=== PATIENT | female | born 1970 | race Caucasian/White ===

== ENCOUNTER → 2023-10-23 06:23 | Day surgery (SDC) | payer OTHER, SELFPAY | LOC: GI 06:23 | PROVIDERS: ATTENDING PHYSICIAN Internal Medicine Gastroenterology | DX: K50.819 Crohn's disease of both small and large intestine with unspecified complications (principal); K63.5 Polyp of colon; K57.30 Diverticulosis of large intestine without perforation or abscess without bleeding; K22.70 Barrett's esophagus without dysplasia; K22.89 Other specified disease of esophagus; K44.9 Diaphragmatic hernia without obstruction or gangrene; K57.10 Diverticulosis of small intestine without perforation or abscess without bleeding | CPT/HCPCS: 45380; 43239; 88305 ==

== ENCOUNTER → 2023-11-19 15:56 | Outpatient (REF) | payer OTHER, SELFPAY | LOC: WDC 15:56 | PROVIDERS: ATTENDING PHYSICIAN Obstetrics & Gynecology; FAMILY PHYSICIAN Family Medicine | DX: Z12.31 Encounter for screening mammogram for malignant neoplasm of breast (principal) | CPT/HCPCS: 77063; 77067 ==

== ENCOUNTER → 2023-12-28 13:37 | Outpatient (REF) | payer OTHER, SELFPAY | LOC: PAVMRI 13:37 | PROVIDERS: ATTENDING PHYSICIAN Internal Medicine Gastroenterology; FAMILY PHYSICIAN Family Medicine | DX: K50.00 Crohn's disease of small intestine without complications (principal) | CPT/HCPCS: 72197; 74183; A9575 ==

== ENCOUNTER → 2024-08-20 14:47 | Outpatient (REF) | payer OTHER, SELFPAY | LOC: HWRAD 14:47 | PROVIDERS: ATTENDING PHYSICIAN Family Medicine | DX: Z87.891 Personal history of nicotine dependence (principal) | CPT/HCPCS: 71271 ==

== ENCOUNTER → 2024-11-24 12:53 | Outpatient (REF) | payer OTHER, SELFPAY | LOC: WDC 12:53 | PROVIDERS: ATTENDING PHYSICIAN Family Medicine | DX: Z12.31 Encounter for screening mammogram for malignant neoplasm of breast (principal) | CPT/HCPCS: 77063; 77067 ==

== ENCOUNTER 2025-02-11 16:32 | Inpatient (IN) | payer OTHER, SELFPAY ==
[2025-02-11] VITALS (7 sets, daily range): BP systolic 138–158; BP diastolic 78–93; BMI 27.5; BMI 26.3
[2025-02-11 10:48] LABS: Hematocrit 40.4 % (37.0-47.0); Hemoglobin 13.3 g/dL (12.0-16.0); Mean Corp Hgb Conc. 32.9 g/dL (33.0-37.0); Mean Corpuscular Volume 83.1 fL (81.0-99.0); Nucleated Red Blood Cells % 0 %; Platelet Count 343 10^3/uL (130-400); Red Cell Dist. Width 13.2 % (11.5-14.5)
[2025-02-11 11:07] LABS: ALT (SGPT) 30 U/L (0-35); AST (SGOT) 35 U/L (14-36); Albumin 4.8 g/dl (3.5-5.0); Alkaline Phosphatase 81 U/L (38-126); Blood Urea Nitrogen 16 mg/dl (7-17); Calcium 9.5 mg/dl (8.4-10.2); Carbon Dioxide 26 mmol/L (22-30); Chloride 106 mmol/L (98-107); Glucose 121 mg/dl (70-99); Potassium 4.2 mmol/L (3.5-5.1); Sodium 139 mmol/L (135-145); Total Protein 8.0 g/dl (6.3-8.2); eGFR > 60.00
[2025-02-11 11:24] LABS: INR 0.92; PT 12.8 Sec (11.4-14.6)
[2025-02-11 11:25] LABS: APTT 23.6 Sec (23.4-35.0)
[2025-02-11] MEDS: NSS 1000 IV ×2 (13:10→17:57)
--- NOTE | 2025-02-11 13:47 | ED.GENMED ---
History of Present Illness
General
Chief Complaint: Abdominal Pain
Source: patient
Exam Limitations: none
Time Seen by Provider: 02/11/25 12:08
Nursing documentation reviewed up to this point in time: agreed with
History of Present Illness
History of Present Illness:
see mdm
Past History
Past History
ED Past Medical History: GERD ([place]), Other (Crohns) and Other (SBO)
ED Past Surgical History: Gynecological
Social History
Tobacco: Non-smoker
Personal:
Living: with family
Employment: Employed
Phy Exam
Physical Exam
Physical Exam:
GENERAL: Alert , in no apparent distress
EYE: pupils equal and reactive
NECK: Supple
ENT: o/p clr, mmm.
CARDIAC: Regular rate and rhythm .no edema
LUNGS: Clear breath sounds bilaterally, no acute respiratory distress, no wheezes/rales/rhonchi
ABDOMEN: Soft, mild to mod lower abd tenderness ,no guarding, mild bloating, no r/g, no cvat, normal bowel soundsR
rectal: pink blood in vault
NEUROLOGICAL: Alert and oriented, no focal neuro deficits
SKIN: Warm and dry, skin intact.
MUSCULOSKELETAL: No edema, well perfused. neg jessica's sign
PSYCH: Normal and appropriate interaction.
Course
Orders/Labs/Results
Orders:
Orders
02/11/25 10:41
Type And Crossmatch [Type+Screen] Urgent
Complete Blood Count/With Diff Urgent
Comprehensive Metabolic Panel Urgent
PTT Urgent
Prothrombin Time Urgent
02/11/25 12:30
CT Abd/Pel (IV only)-DH only Urgent
Comment: crohns
Reason For Exam: lower abd pain, rectal bleeding, diarrhea
0.9% Sodium Chloride 1000 ml [Nss] 1,000 ml IV BOLUS
02/11/25 13:02
ABO2 Routine
BBK Wristband Number:
Associate notified that ABO2 has been ordered: [id number]
Date: 02/11/25
Time: 10:56
Biometrics Analyst ID: [id number]
Lactic Acid Urgent
02/11/25 Dinner
Clear Liquid
At Your Request: Full Participation
02/11/25 15:58
Ova & Parasites Giardia/Crypto AG [Giardia/Cryptosporidium Ag] Urgent
GALEN Source: Feces/Stool
Specimen Description:
Date Specimen was Collected: 02/11/25
Time Specimen was Collected: 15:20
STOOL [C difficile Antigen & Toxins] Urgent
GALEN Source: Feces/Stool
Specimen Description:
Date Specimen was Collected: 02/11/25
Time Specimen was Collected: 15:20
Stool Culture Urgent
GALEN Source: Feces/Stool
Specimen Description:
Date Specimen was Collected: 02/11/25
Time Specimen was Collected: 15:20
Yersinia Culture-Stool Urgent
GALEN Source: ST
Specimen Description:
Date Specimen was Collected: 02/11/25
Time Specimen was Collected: 15:20
Comment: Add on by Kimberly Anaya MD
02/11/25 16:09
Admit/Transfer Patient As Directed
Co-Sign Provider:
Level of Care: Inpatient admission
Assign to:: Medical/Surgical
Physician / Group: Hospitalist
Diagnosis: Hematochezia, diarrhea
Reason for Hospitalization: Hematochezia, diarrhea
Expected length of stay greater than two midnights?: Yes
ELOS- Estimated Length of Stay in days: 2
I certify the patient meets the requirements for IP care: Yes
PRN Pain Medication Management As Directed
May give lesser potent ordered pain med per pt: Yes
preference::
Protocol:: Medication orders for pain may be administered in a
manner that supports deferring to patient preference
when the pt is:
- Requesting an ordered lesser potent pain medication.
Least to most potent pain medications are defined
as: acetaminophen < NSAID < tramadol < opioids
(morphine, oxycodone, hydromorphone).
- Requesting a lesser dose of the same medication IF
ORDERED.
- Requesting a less intrusive route of administration
if both routes are prescribed by the provider (PO <
IV).
02/11/25 16:10
Code Status As Directed
Resuscitation Status: Full Code
02/11/25 16:15
Add On - Microbiology Routine
Tests Added?: yersinia to stool
02/11/25 17:40
0.9% Sodium Chloride 1000 ml [Nss] 1,000 ml IV 75 mls/hr
Acetaminophen [Tylenol] 650 mg PO Q4HPRN PRN
02/11/25 17:40
GASTROINTESTINAL CONSULT Routine
Consulting Provider: Scott Black
Was physician already notified: Yes
Reason for consult: Bloody stools
Activity As Directed
Activity Level: Encourage Progressive Amb
Pneumatic Compression Sleeves As Directed
Type: Knee high
Vital Signs As Directed
Frequency: Per unit guidelines
DX Deep Vein Thrombosis Video Routine
02/11/25 18:00
Atorvastatin [Lipitor] 10 mg PO QPM
CefTRIAXone [Rocephin] 1,000 mg IV Q24H
MetroNIDAZOLE 500 MG/100 ML [Flagyl 500 mg] 100 ml IV Q8H
02/11/25 20:00
Pantoprazole [Protonix] 40 mg PO BID
02/11/25 20:15
H&H Q8H
02/11/25 22:00
Citalopram [Celexa] 40 mg PO HS
02/12/25 04:15
H&H Q8H
02/12/25 06:00
Basic Metabolic Panel IN AM
Complete Blood Count/No Diff IN AM
Magnesium IN AM
Vitamin B12 IN AM
Abnormal Lab Results
02/11/25
10:41
WBC 13.5 H 10^3/uL
(4.8-10.8)
MCHC 32.9 L g/dL
(33.0-37.0)
Abs Immat Gran (auto) 0.1 H 10^3/uL
(0-0.05)
Absolute Neuts (auto) 10.2 H 10^3/uL
(1.4-6.5)
Absolute Monos (auto) 0.8 H 10^3/uL
(0.1-0.6)
Neutrophils % 75.5 H %
(42.2-75.2)
Lymphocytes % 17.7 L %
(20.5-51.1)
Glucose 121 H mg/dl
(70-99)
02/11/25 10:41
02/11/25 10:41
Vital Signs
Initial and Last Documented VS:
Initial Vital Signs
Temp Pulse Resp BP Pulse Ox
37.1 C 72 16 138/93 100
02/11/25 10:28 02/11/25 10:28 02/11/25 10:28 02/11/25 10:28 02/11/25 10:28
Last Documented Vital Signs
Temp Pulse Resp BP Pulse Ox
36.9 C 63 18 150/81 97
02/11/25 20:00 02/11/25 20:00 02/11/25 20:00 02/11/25 20:00 02/11/25 20:00
MDM/Problems Addressed
Differential Diagnosis Includes:
see MDM
MDM/Problems Addressed:
Note:
CHIEF COMPLAINT(S)
Abdominal pain and bloody diarrhea.
HISTORY OF PRESENT ILLNESS
The patient is a 54-year-old female with a known history of Crohns disease on humira. She presented with sudden onset abdominal pain yesterday while in the car, accompanied by lightheadedness and nausea. Later, the patient experienced diarrhea with
visible blood in the stool, which persisted overnight. She reported at least six episodes of bloody stools since onset, with the initial bloody stool occurring at home after using a jm-potty. She described the stool consistency as flaky and
mushy. The patient also experienced lightheadedness and sweating during bathroom trips, with dry heaves noted in the middle of the night but no vomiting.
The patient has been on Humira injections every two weeks for Crohns disease maintenance, recently transitioned to Amjevita. She reports that previous Crohns flare-ups involved only abdominal pain and diarrhea without blood. Current symptoms are
concerning due to the presence of blood. She has ongoing cramping and bloating sensations, which do not completely resolve post bowel movements. Nausea was reported during the night but not since the morning. The patient denies fever but mentions
chills. She has had no food intake today out of fear of exacerbating her symptoms.
ADDITIONAL HISTORY OBTAINED FROM SOURCES OTHER THAN THE PATIENT
According to the patients family, she traveled to [place] recently, consuming bottled water exclusively. No other known illness from the travel libertarian.
CHRONIC MEDICAL CONDITIONS SIGNIFICANTLY AFFECTING CARE
Crohns disease.
Hypercholesterolemia.
SOCIAL DETERMINANTS AFFECTING HEALTH
The patient has traveled internationally recently, which could contribute to infectious concerns.
ALLERGIES
The patient reports an adverse reaction to morphine, stating it exacerbates her condition.
PAST MEDICAL HISTORY
Crohns disease.
PAST SURGICAL HISTORY
Hysterectomy due to endometriosis. No previous bowel surgeries, but a past episode suggestive of partial bowel obstruction without surgical intervention.
MEDICATIONS
Amjevita injections every two weeks.
REVIEW OF SYSTEMS
- Gastrointestinal: Abdominal pain, bloody diarrhea, cramping, bloating, nausea, dry heaves.
- Neurological: Lightheadedness.
- Dermatological: Episodes of sweating corresponding to bathroom usage.
- General: Chills with no fever reported.
PHYSICAL EXAM
- Gastrointestinal: Rectal examination confirmed the presence of red blood without clots or stool.
Nursing notes reviewed and vital signs reviewed.
PROBLEM LIST
Acute:
- Abdominal pain with bloody diarrhea.
Chronic:
- Crohns disease.
- Hypercholesterolemia.
PLAN
The patient will undergo a computed tomography (CT) scan of the abdomen to evaluate for potential causes of bloody diarrhea, such as diverticulitis or infectious colitis, and assess for complications related to Crohns disease. Stool samples will be
collected for laboratory testing. The case will be discussed with the budget counselor motor inspection mechanic following imaging results.
DIFFERENTIAL DIAGNOSIS
The Differential Diagnosis includes, in no particular order and is not limited to:
1. Crohns disease flare with bleeding.
2. Infectious colitis.
3. Diverticulitis with associated bleeding.
4. Ischemic colitis.
5. Upper gastrointestinal bleed with rapid transit.
6. Ulcerative colitis.
7. Hemorrhoids with bleeding.
8. Colon cancer.
9. Gastroenteritis.
10. Anal fissure with bleeding.
54 y/o F
crohns on immunosuppressant
here with bloody diarrhea and lower abd pain
recent travel out of the control
no fever
wbc 13
lactic normal
ct shows colitis
no diveritculitis
needs stool studies
d/w GI
will admit
hold steroids until stooll
*Pulse Oximetry
SaO2: 99
Oxygen Mode of Delivery: Room air
Patient hypoxic: no (100)
*Critical Care Note
Total Time (30-74mins, 75-104mins- exclusive of procedures): Not Applicable
ED Attending Note
-
Portions of this chart may have been created with voice recognition software.� Occasional wrong word or��sound alike� substitutions may have occurred due to the inherent limitations of voice recognition software.
Discharge Plan
Departure
Patient Disposition: Admit
Date of Disposition: 02/11/25
Time of Disposition: 15:01
Admit to: Med/Surg
Presentation/result/management discussed w/ accepting MD/DO: Hospitalist
Condition: Fair
Covid-19: Not Applicable
Discharge Problem:
Rectal bleed, Colitis, Crohn's colitis
Interventions
Interventions:
*Risk Screen - Suicide Last Done: 02/11/25 10:30
*General Assessment Last Done: 02/11/25 12:56
*Neglect/Abuse Screening Last Done: 02/11/25 12:56
*ED- Fall Risk Assessment Last Done: 02/11/25 12:56
*ED COVID-19 Vaccine History Last Done: 02/11/25 12:56
*Nursing Disposition Last Done: 02/11/25 19:57
WW-Gvlbem-Dsrshsqbtw Assessment Last Done: 02/11/25 12:56
Discharge Date and Time
Discharge Date/Time: 02/11/25 19:57
--- NOTE | 2025-02-11 15:44 | HPS.HSE ---
Family Physician
-
Family Physician: Idania Hurtado
Chief Complaint
-
Abdominal pain
History of Present Illness
54-year-old with abdominal pain associated with lightheadedness and nausea. Patient then had diarrhea with blood in the stool at least 6 episodes since onset. She had lightheadedness and sweating. She is on Humira every 2 weeks for Crohn's
disease recently transition to Amjevita, first dose would have been today. She follows up with Dr. Casillas. Patient also had a recent trip to [place] and her friend has similar symptoms with diarrhea but she does not have bloody stools.
Medical History
Past Medical History
Past Medical History: Reports Other
Additional Past Medical History:
Chron's disease, Villarreal's esophagus
Past Surgical History: Reports Other
Additional Past Surgical History:
Hysterectomy, mass removed from the right leg
Social History
Tobacco: Former Smoker
Alcohol: Occasional
Living: With Family
Family History
Family History: Cancer (Grandmother had colon cancer)
Allergies / Home Medications
Allergies reflects when Allergies were last updated in [facility].
Home Medications with original date entered in [employer] [facility]
Allergy/Medication List:
Allergies
Allergy/AdvReac Type Severity Reaction Status Date / Time
phenylephrine (From Sudafed Allergy palpations Verified 02/11/25 10:32
PE) heart
meperidine (From Demerol) AdvReac Nausea / Verified 02/11/25 10:32
Vomiting
morphine AdvReac Nausea / Verified 02/11/25 10:32
Vomiting
Home Medications
adalimumab-atto 40 mg/0.4 mL subcutaneous syringe (Amjevita(CF)) 40 mg SC Q2W 02/11/25
atorvastatin 10 mg tablet (Lipitor) 10 mg PO QPM 02/11/25
citalopram 40 mg tablet (Celexa) 40 mg PO HS 02/11/25
lansoprazole 30 mg capsule,delayed release 30 mg PO BID 02/11/25
therapeutic multivitamin 1 tab PO DAILY 02/11/25
Review of Systems
-
A 12 point ROS was completed and negative except as noted: Yes
Cardiac: Denies Chest Pain
Abdomen/GI: Reports Abdominal Pain, Diarrhea and Bloody Stools; Denies Nausea
Physical Exam
Vital Signs
Vital Signs
Temp Pulse Resp BP Pulse Ox
98.7 F 59 16 156/91 99
02/11/25 10:28 02/11/25 12:56 02/11/25 10:28 02/11/25 13:00 02/11/25 13:48
Physical Exam
General: No Apparent Distress
Respiratory: Clear
Cardiac: S1/S2
GI: Soft, Normal Bowel Sounds and Other ( mild discomfort)
Musculoskeletal: No Edema, Left Lower Extremity or Edema, Right Lower Extremity
Skin: Warm; No Rash
Psych: Intact Judgment/Insight
Laboratory Results
-
02/11/25 10:41
02/11/25 10:41
Laboratory Results
PT 12.8 Sec (11.4-14.6) 02/11/25 10:41
INR 0.92 02/11/25 10:41
APTT 23.6 Sec (23.4-35.0) 02/11/25 10:41
Lactic Acid 1.0 mmol/L (0.7-2.0) 02/11/25 13:02
Total Bilirubin 0.9 mg/dl (0.2-1.3) 02/11/25 10:41
AST 35 U/L (14-36) 02/11/25 10:41
ALT 30 U/L (0-35) 02/11/25 10:41
Alkaline Phosphatase 81 U/L (38-126) 02/11/25 10:41
Data Reviewed
-
CT Scan: Other (CT abdomen and pelvis-acute colitis descending and proximal sigmoid colon most likely Crohn's disease. Infectious colitis also differential. Moderate hiatal hernia. Hepatomegaly with hepatic fatty infiltration)
Impression/Plan
-
IMPRESSION/PLAN:
Colonoscopy 10/23/2023-ileum normal, no inflammation, Diverticulosis in the sigmoid colon
# Hematochezia
Recent trip to [place]
Colitis infectious versus exacerbation of Crohn's
Stool studies, cultures and C. difficile, ova and parasites and uricemia
Start antibiotics ceftriaxone and Flagyl
Hold off on steroids until infection is ruled out
GI consultation
H&H every 8
Clear liquid diet
IV fluids
# Crohn's disease on Amgevita as outpatient now scheduled to start on 02/11/2025. Patient was on Humira in the past
# Anxiety-continue Celexa
# Hyperlipidemia continue atorvastatin
# Diverticulosis
# DVT prophylaxis-SCDs
# Full code
Discussed with daughter at bedside
--- NOTE | 2025-02-11 16:37 | CM ---
CM reviewed chart and met with pt bedside in ED. Lives with her in split level home, [address], 6 steps to BR/BA.
Independent in ADLs, personal care and ambulation at baseline. No DME
PCP: Idania Hurtado
Pharmacy: [facility]
Anticipate discharge home, CM will continue to follow for all discharge planning needs.
[2025-02-11] MEDS: TORADOL 10 MG IV (17:04)
[2025-02-11] MEDS: LIPITOR 10 MG PO (18:10)
[2025-02-11] MEDS: ROCEPHIN 1000 MG IV (18:11)
[2025-02-11] MEDS: STERILE WATER FOR INJECTION 10 ML IV (18:11)
[2025-02-11] MEDS: FLAGYL 500 MG 100 IV (18:13)
[2025-02-11] MEDS: CELEXA 40 MG PO (21:11)
[2025-02-11] MEDS: PROTONIX 40 MG PO (21:11)
[2025-02-11 21:40] LABS: Hematocrit 35.5 % (37.0-47.0); Hemoglobin 12.1 g/dL (12.0-16.0)
[2025-02-12] MEDS: FLAGYL 500 MG 100 IV ×3 (01:39→18:23)
[2025-02-12 04:23] LABS: Hematocrit 34.7 % (37.0-47.0); Hemoglobin 11.5 g/dL (12.0-16.0)
[2025-02-12 04:28] LABS: Hematocrit 34.9 % (37.0-47.0); Hemoglobin 11.3 g/dL (12.0-16.0); Mean Corp Hgb Conc. 32.4 g/dL (33.0-37.0); Mean Corpuscular Volume 83.3 fL (81.0-99.0); Platelet Count 271 10^3/uL (130-400); Red Cell Dist. Width 13.2 % (11.5-14.5)
[2025-02-12 04:56] LABS: Blood Urea Nitrogen 13 mg/dl (7-17); Calcium 8.7 mg/dl (8.4-10.2); Carbon Dioxide 24 mmol/L (22-30); Chloride 108 mmol/L (98-107); Estimated Creatinine Clearance 91 ml/min; Glucose 90 mg/dl (70-99); Magnesium 1.8 mg/dl (1.6-2.3); Potassium 4.1 mmol/L (3.5-5.1); Sodium 139 mmol/L (135-145); eGFR > 60.00
[2025-02-12 05:44] LABS: Vitamin B12 693 pg/ml (239-931)
[2025-02-12 07:28] VITALS: BP 152/83
--- NOTE | 2025-02-12 08:28 | CON.GI ---
Addendum entered and electronically signed by Scott Black DO 02/12/25 12:34:
I saw and examined the patient.
The COAGULATING OPERATOR's note was reviewed and I agree with the note.
Comment: Ms Calles is a 54 y.o female with a past medical history of non-dysplastic Coronel's esophagus, MASLD, desmoid tumor (s/p resection), endometriosis, and terminal ileal Crohn's disease (dx 2010 with previous SBO w/out surgery) previous on
Humira and due to start TNF-biosimilar (Amjevita- due on 02/11) who presented to the ED with diarrhea [place] [facility]. Patient states her symptoms started earlier this week, a few days after her [facility].
Reports developing abdominal pain with initial non-bloody watery diarrhea with progression to bloody stools. These symptoms are quite different from her previous symptoms in regards to her Crohn's disease and denies any recent flares in regards to
her Crohn's disease. Her last colonoscopy was back on 10/2023 and felt to be in remission with a normal appearing ileum. No other recent NSAID use. Labs on admission notable for leukocytosis with WBC 13.5 with left shift and CT imaging demonstrating
acute colitis involving the descending and proximal sigmoid colon along with a moderate HH and hepatomegaly with fatty infiltration. Stool studies were sent and currently pending, but C Diff (-) along with stool O&P (-). Clinically, her presentation
is most consistent with likely an acute, infectious colitis and much less likely IBD given her symptoms and recent travel history. She is improving on IV abx with Ceftriaxone/Flagyl further supporting a likely infectious process. For now, would
defer any plans for starting steroids at this time and would briefly hold her biologic pending her infectious w/u. Would defer any plans for a flex-sig (as patient was requesting) as again very low suspicion for IBD or CMV colitis. Okay for CLD and
may advanced diet as tolerated to low-fiber, low-residue. Additionally, please ensure chemical VTE ppx as well despite her bloody stools given the risk for her increased risk for VTE given her IBD. Minimized opioids as much as possible and agree
with continuing ongoing supportive as detailed below.
GI will continue to follow. Thank you for allowing me to participate in the care of this patient. Please do not hesitate to call for any further questions.
Original Note:
Consultation
-
Date/Time Consultation Requested: 02/11/25 1740
Date/Time Consultation Performed: 02/12/25 0830
Requesting Provider: Kimberly Rivera MD
Performing Provider: RANDY Gmaez, Scott Black DO
Reason for Consultation: diarrhea/ rectal bleeding
Medical History
Chief Complaint / HPI
History of Present Illness:
Pt is a 54yo with hx terminal ileal crohns disease since 2010 with prior SBO without prior surgery with prior [employer] the retirement Humira with change in medical coverage and due to start Amjevita 02/11, Coronel's esophagus, GERD, HH, fatty liver,
desmoid tumor with resection endometriosis, ANTONINO, depression now presents with sudden onset of abdominal pain with lightheadedness and nausea with diarrhea. She admits her crohns has been well controlled with formed stools daily. She did have recent
travel to [place] and [employer] with return 02/06. She began 02/10 in the evening with onset of lower abdominal pain with normal stool then onset of diarrhea and bleeding. Symptoms persisted with multiple stools 02/11 then some gas and no further bleeding
after admission. She denies any recent antibiotics or tainted foods. CT on admission with acute colitis, descending and proximal sigmoid related to crohns vs infectious etiology. Also noted moderate HH and fatty liver. Stool studies since
admission with c-diff, Giardia, crypto neg other cx pending.
In review with patient she admits to dry heaves without vomiting. Chronic GERD on PPI therapy. Pain was in lower abdomen with some improvement today. She denies wt loss, odynophagia, dysphagia, or black stools. Labs on admission with WBC
13,500, glucose 121 otherwise normal labs.
last scopes:
10/2023 colonoscopy [facility]-normal ileum, no inflammation found, 2 mm polyp, diverticulosis bx neg colitis or lymphocytic/collagenous colitis
10/2023- EGD [facility] - No gross lesions in the entire esophagus.- Z-line variable, 39 cm from the incisors. Biopsied.
- Medium-sized hiatal hernia.- No gross lesions in the entire stomach- Duodenal diverticulum. bx + intestinal metaplasia neg dysplasia
CT A/P 02/11
1. Acute colitis descending and proximal sigmoid colon, most likely related to the given history of Crohn's disease. Infectious colitis is also a differential consideration. No signs of abscess formation or drainable collection.
2. Moderate hiatal hernia.
3. Hepatomegaly and hepatic fatty infiltration.
c-diff, giardia, cypto neg other cx pending
Past Medical History
Past Medical History: Psychiatric (depression) and Other (crohns disease, coronel's esophagus, endometriosis, desmoid tumor, fatty liver, moderate HH)
Past Surgical History: Gynecological (ANTONINO) and Other (desmoid tumor resection)
Social History
Tobacco: Former Smoker
Alcohol: Occasional
Drug: None
Personal:
Living: With Family
Employment: Employed
Family History
Family History: Other (aunt with UC, paternal GM with colon CA, no family hx crohns disease )
Allergies / Home Medications
Allergy/AdvReac Type Severity Reaction Status Date / Time
meperidine (From Demerol) Allergy Nausea / Verified 02/11/25 17:43
Vomiting
morphine Allergy Nausea / Verified 02/11/25 17:43
Vomiting
phenylephrine (From Sudafed Allergy palpations Verified 02/11/25 10:32
PE) heart
�Medication �Instructions �Recorded
adalimumab-atto 40 mg/0.4 mL 40 mg SC Q2W Autoimmune Disorder 02/11/25
subcutaneous syringe (Amjevita(CF))
atorvastatin 10 mg tablet (Lipitor) 10 mg PO QPM High Cholesterol 02/11/25
citalopram 40 mg tablet (Celexa) 40 mg PO HS Depression 02/11/25
lansoprazole 30 mg capsule,delayed 30 mg PO BID Gastrointestinal Issue 02/11/25
release
therapeutic multivitamin 1 tab PO DAILY Supplement 02/11/25
Review of Systems
-
History Source: Patient
Constitutional: Reports No Symptoms
EENT: Reports No Symptoms
Respiratory: Reports No Symptoms
Abdomen/GI: Reports Abdominal Pain, Nausea, Diarrhea and Bloody Stools
: Reports No Symptoms
Musculoskeletal: Reports No Symptoms
Skin: Reports No Symptoms
Neurological: Reports Weakness
Endocrine: Reports No Symptoms
Hematologic/Lymphatic: Reports No Symptoms
Vital Signs
Temp Pulse Resp BP Pulse Ox
98.0 F 63 16 152/83 98
02/12/25 07:28 02/12/25 07:28 02/12/25 07:28 02/12/25 07:28 02/12/25 07:28
Physical Exam
Exam
General: Well Developed, Well Nourished and Other (some distress with feeling of need to eat breakfast )
HEENT: Normocephalic and Anicteric
Respiratory: Clear
Cardiac: Regular Rhythm
GI: Soft, Non Distended and Tender (lower abdomen )
Musculoskeletal: No Clubbing and No Cyanosis
Skin: Warm and Dry
Neuro: Awake, Alert and AO x 3
Psych: Calm
Results
WBC 10.2 10^3/uL (4.8-10.8) 02/12/25 04:09
Hgb 11.3 g/dL (12.0-16.0) L 02/12/25 04:09
Hgb 11.5 g/dL (12.0-16.0) L 02/12/25 04:09
Hct 34.7 % (37.0-47.0) L 02/12/25 04:09
Hct 34.9 % (37.0-47.0) L 02/12/25 04:09
MCV 83.3 fL (81.0-99.0) 02/12/25 04:09
Plt Count 271 10^3/uL (130-400) D 02/12/25 04:09
Absolute Neuts (auto) 10.2 10^3/uL (1.4-6.5) H 02/11/25 10:41
PT 12.8 Sec (11.4-14.6) 02/11/25 10:41
INR 0.92 02/11/25 10:41
APTT 23.6 Sec (23.4-35.0) 02/11/25 10:41
Sodium 139 mmol/L (135-145) 02/12/25 04:09
Potassium 4.1 mmol/L (3.5-5.1) 02/12/25 04:09
Chloride 108 mmol/L (98-107) H 02/12/25 04:09
Carbon Dioxide 24 mmol/L (22-30) 02/12/25 04:09
BUN 13 mg/dl (7-17) 02/12/25 04:09
Creatinine 0.7 mg/dL (0.6-1.0) 02/12/25 04:09
Calcium 8.7 mg/dl (8.4-10.2) 02/12/25 04:09
Total Bilirubin 0.9 mg/dl (0.2-1.3) 02/11/25 10:41
AST 35 U/L (14-36) 02/11/25 10:41
ALT 30 U/L (0-35) 02/11/25 10:41
Alkaline Phosphatase 81 U/L (38-126) 02/11/25 10:41
Diagnostic Image Results:
CT A/P 02/11
1. Acute colitis descending and proximal sigmoid colon, most likely related to the given history of Crohn's disease. Infectious colitis is also a differential consideration. No signs of abscess formation or drainable collection.
2. Moderate hiatal hernia.
3. Hepatomegaly and hepatic fatty infiltration.
c-diff, giardia, cypto neg other cx pending
10/2023 colonoscopy [facility]-normal ileum, no inflammation found, 2 mm polyp, diverticulosis bx neg colitis or lymphocytic/collagenous colitis
10/2023- EGD [facility] - No gross lesions in the entire esophagus.- Z-line variable, 39 cm from the incisors. Biopsied.
- Medium-sized hiatal hernia.- No gross lesions in the entire stomach- Duodenal diverticulum. bx + intestinal metaplasia neg dysplasia
per OP chart
Colonoscopy June 2021 showing no inflammation in the terminal ileum or colon and terminal ileum could not be intubated without any evidence of stricture or narrowing.
She did have Covid in July and had to hold off on the Humira for a couple of days.
MRE 10/2020-MR enterography, angulated small bowel loops in the right lower quadrant with 2 segments of stenosis consistent with chronic fibrotic stricture, a 5 cm segment of distal ileal stenosis without proximal dilation, slightly irregular
adjacent stenotic segment also measuring 5 mm though with less narrowing, no evidence of obstruction, no evidence of active inflammation.
Colonoscopy in 2018-Terminal ileum with moderate stenosis, not traversed, diffuse inflammation, moderate in severity with erythema and scarring in terminal ileum, biopsies Showing surface erosion moderate acute inflammation, normal colon
Mucosa,Biopsies without any evidence of inflammation, hyperplastic sigmoid polyp removed.
Upper endoscopy in 2018 showing intestinal metaplasia compatible with Coronel's.
Colonoscopy in 2015, random colon biopsies unremarkable
Upper endoscopy in 2014 with Coronel's esophagus
Upper endoscopy in 2012 with Coronel's esophagus, Hiatal hernia
Colonoscopy in 2012Showing few ulcers in the terminal ileum, benign rectal biopsies
Colonoscopy in 2010 showing stricture of the terminal ileum, Biopsies showing active and chronic inflammation with ileitis, random colon biopsies unremarkable
CT scan of the abdomen and pelvis with contrast in November 2018-small hiatal hernia, bowel loops are minimally prominent, largest measuring 103 cm at 2.9 cm, in the left pelvis, likely due to ileus. Terminal ileum and appendix are normal
CT scan abdomen and pelvis in July 2018 showing approximately 7 cm long segment of abnormal wall thickening and enhancement involving the distal ileum compatible with Crohn's.
MR enterography in 2015 showing approximately 7 cm long segment of mucosal nodularity and mild wall thickening and hyper terminal ileum.
Assessment / Plan
-
Pt is a 54yo with hx terminal ileal crohns disease since 2010 with prior SBO without prior surgery with prior [employer] the [employer] for [employer] Humira with change in medical coverage and due to start Amjevita 02/11, Coronel's esophagus, GERD, HH, fatty liver,
desmoid tumor with resection endometriosis, ANTONINO, depression now presents with sudden onset of abdominal pain with lightheadedness and nausea with diarrhea. She admits her crohns has been well controlled with formed stools daily. She did have recent
travel to [place] with return 02/06. She began 02/10 in the evening with onset of lower abdominal pain with normal stool then onset of diarrhea and bleeding. Symptoms persisted with multiple stools 02/11 then some gas and no further bleeding
after admission. She denies any recent antibiotics or tainted foods. CT on admission with acute colitis, descending and proximal sigmoid related to crohns vs infectious etiology. Also noted moderate HH and fatty liver. Stool studies since
admission with c-diff, Giardia, crypto neg other cx pending.
In review with patient she admits to dry heaves without vomiting. Chronic GERD on PPI therapy. Pain was in lower abdomen with some improvement after admission. Labs on admission with WBC 13,500, glucose 121 otherwise normal labs.
last scopes:
10/2023 colonoscopy [facility]-normal ileum, no inflammation found, 2 mm polyp, diverticulosis bx neg colitis or lymphocytic/collagenous colitis
10/2023- EGD [facility] - No gross lesions in the entire esophagus.- Z-line variable, 39 cm from the incisors. Biopsied.
- Medium-sized hiatal hernia.- No gross lesions in the entire stomach- Duodenal diverticulum. bx + intestinal metaplasia neg dysplasia
-sudden onset of lower abdominal pain with diarrhea and bleeding
-CT wtih concern for descending and sigmoid colitis
-mild leukocytosis on admission
-recent travel to [place]
-hx longstanding ileal crohns on Humira and was due to start Amjevita 02/11
other med problems:
- Coronel's esophagus on chronic Lansoprazole
- GERD
-HH
-fatty liver
-desmoid tumor with resection endometriosis
-ANTONINO
-depression
PLAN:
etiology of colitis related to infectious etiology with recent travel, crohns flare vs other
c-diff, Giardia, crypto await other cultures will add stool WBC's and O+P with international travel and chronic Humira use
cont abx
pt tolerating clears -- will trial advancement to low residue/low lactose as feeling weak and nauseous without eating
would hold start of Amjevita-- was due for first dose 02/11 -- family can bring in if needed
add CRP, ESR and fecal gail though may also be elevated with infectious process
if stool neg and not improving consider flex and adding steroids
cont PPI with hx coronel's/GERD
reviewed fatty liver finding on CT with patient-- further review OP with Dr. Casillas
-
-
Thank you for consultation and allowing me to participate in the patient's care. Please call the hvac controls technician GI physician during the after hours with any questions or concerns.
[2025-02-12] MEDS: PROTONIX 40 MG PO ×2 (08:43→21:04)
[2025-02-12] MEDS: NSS 1000 IV (09:16)
[2025-02-12 09:59] LABS: C-Reactive Protein < 5.00 mg/L (0.0-10.00)
--- NOTE | 2025-02-12 13:19 | CM ---
Chart reviewed and rn field case manager met with patient plan is to home no needs when stable.
Plan; Home no needs
--- NOTE | 2025-02-12 14:40 | W.PN.HOSP.TC ---
Today's Communication/Plan
-
Diet advanced
Wait for stool cultures
Possible discharge tomorrow if okay with GI
Assessment / Plan
Assessment / Plan
Colonoscopy 10/23/2023-ileum normal, no inflammation, Diverticulosis in the sigmoid colon.
Better no abdominal pain
Stools have become more formed
Mild blood only
Abdomen soft on exam
Cardiovascular system S1-S2 appreciated
Chest clear to auscultation
# Hematochezia
Recent trip to [place]
Colitis infectious versus exacerbation of Crohn's likely infectious colitis
Stool studies, cultures and C. difficile, ova and parasites and uricemia
Continue ceftriaxone and Flagyl
CRP low
C. difficile negative-cultures pending
GI consultation appreciated
H&H stable
Diet advanced
IV fluids can be stopped.
# Crohn's disease on Amgevita as outpatient now scheduled to start on 02/11/2025. Patient was on Humira in the past
# Anxiety-continue Celexa
# Hyperlipidemia continue atorvastatin
# Diverticulosis
# DVT prophylaxis-SCDs
# Full code
Anticipated Discharge: Within 24 hours
Subjective/Interval History
-
Date of Service: February 12, 2025
Objective Data
-
Labs:
Laboratory Results
02/12/25 02/12/25 02/12/25
04:09 04:09 04:09
WBC 10.2
Hgb 11.5 L 11.3 L
Hct 34.7 L 34.9 L
Plt Count 271 D
Sodium 139
Potassium 4.1
Chloride 108 H
Carbon Dioxide 24
BUN 13
Creatinine 0.7
Glucose 90
Calcium 8.7
Vital Signs:
Vital Signs
Temp Pulse Resp BP Pulse Ox
98.0 F 63 16 152/83 98
02/12/25 07:28 02/12/25 07:28 02/12/25 07:28 02/12/25 07:28 02/12/25 07:28
I&O
02/11/25 02/12/25 02/13/25
06:59 06:59 06:59
Intake Total 240 / 240
Balance 240 / 240
[2025-02-12 15:45] VITALS: BP 138/78
--- NOTE | 2025-02-12 17:05 | PTCARENOTE ---
Assumed care of pt from previous nurse. Pt denies pain. pt with no noted loose stools. Pt tolerating diet. Pt call simmons is within reach, pt rings edin. will cont to monitor.
[2025-02-12] MEDS: LIPITOR 10 MG PO (18:17)
[2025-02-12] MEDS: LOVENOX 40 MG SC (18:17)
[2025-02-12] MEDS: ROCEPHIN 1000 MG IV (18:18)
[2025-02-12] MEDS: STERILE WATER FOR INJECTION 10 ML IV (18:23)
[2025-02-12] MEDS: CELEXA 40 MG PO (21:04)
[2025-02-12 23:40] VITALS: BP 146/93
[2025-02-13] MEDS: FLAGYL 500 MG 100 IV ×2 (01:45→09:45)
[2025-02-13 07:00] VITALS: BP 142/89
[2025-02-13] MEDS: PROTONIX 40 MG PO (07:49)
--- NOTE | 2025-02-13 09:50 | PN.CDI ---
CDI
- -
CDI:
Physician Documentation Request
Admit Date: 02/11/25 16:32
Dear Doctor Héctor,
Patient admitted for Crohns v colitis.
ER Physician Documentation: 'The patient has been on Humira injections every two weeks for Crohns disease maintenance, recently transitioned to Amjevita...crohns on immunosuppressant'
Based on the above, could you clarify in the progress notes, the appropriate diagnosis, if significant, that supports the above abnormalities and additional evaluation, monitoring and/or treatment rendered:
Immunosuppressed
Normal immune status
Other
Use of terms such as suspected, likely, concern for, or probable (associated with a specific diagnosis that is being evaluated, monitored, or treated as if it exists) are acceptable and can be coded in the inpatient setting, when documented at the
time of discharge.
Thank you,
Miya Barajas RN, BSN
CDI Specialist
Available via [place] text
Please use your independent medical judgment in providing your response.
--- NOTE | 2025-02-13 11:18 | W.PN.GI.CBS2 ---
Addendum entered and electronically signed by Vishnu Marcano MD 02/13/25 14:24:
I saw and examined the patient.
The FISCAL ACCOUNTANT or PA's note was reviewed and I agree with the note.
Comment: 54 yo F pmh TI Crohn's follows with Dr. Casillas on Humira p/w bloody diarrhea after [place] [facility] [facility] (diarrhea was 5 days after coming home). One other person with diarrhea on trip but not bloody. No unusual foods since being home.
Diarrhea resolved having regular stool with small amount of blood with wiping, no pain, tolerating diet.
Suspect infectious in etiology. Differential includes Crohn's flare but pt does not have known colonic Crohn's and improved with antibiotics.
I d/w Samantha Núñez APN to discuss management and I recommended 7 day course of oral antibiotics and resuming Humira on Sat 8/. Patient is ok for discharge from GI (my) point of view and has follow up with Dr. Casillas later this month.
GI will sign off please call with ?s.
Addendum entered and electronically signed by RANDY Levin 02/13/25 11:51:
Can start Amjevita (biosimilar) tomorrow.
Original Note:
Today's Communication / Plan
-
as per plan
Assessment / Plan
-
Pt is a 54yo with hx terminal ileal crohns disease since 2010 with prior SBO without prior surgery with prior [employer] the group home Humira with change in medical coverage and due to start Amjevita 02/11/25, Villarreal's esophagus, GERD, HH, fatty
liver, desmoid tumor with resection endometriosis, ANTONINO, depression now presents with sudden onset of abdominal pain with lightheadedness and nausea with diarrhea. She admits her Crohn's has been well controlled with formed stools daily. She did
have recent travel [place] [facility] with return 02/[facility]. She began 02/10 in the evening with onset of lower abdominal pain with normal stool then onset of diarrhea and bleeding. Symptoms persisted with multiple stools 02/11 then some gas and no
further bleeding after admission. She denies any recent antibiotics or tainted foods. CT on admission with acute colitis, descending and proximal sigmoid related to crohns vs infectious etiology. Also noted moderate HH and fatty liver.
last scopes:
10/2023 colonoscopy [facility]-normal ileum, no inflammation found, 2 mm polyp, diverticulosis bx neg colitis or lymphocytic/collagenous colitis
10/2023- EGD [facility] - No gross lesions in the entire esophagus.- Z-line variable, 39 cm from the incisors. Biopsied.
- Medium-sized hiatal hernia.- No gross lesions in the entire stomach- Duodenal diverticulum. bx + intestinal metaplasia neg dysplasia
Impression:
-Colitis (CT with descending/sigmoid colitis)
ESR 11, CRP < 5.0.
Stool studies resulted: Positive WBC, Negative for all of these: CDiff, yersinia, E coli, Crypto/Giardia.
Stool studies pending:O&P, Shigella, Salmonella, Campylobacter, calpro.
-recent travel to [place]
-hx longstanding ileal Crohn's on Humira and was due to start Amjevita 02/11/25 (biosimilar)
other med problems:
- Villarreal's esophagus on chronic Lansoprazole
- GERD
-HH
-fatty liver
-desmoid tumor with resection endometriosis
-ANTONINO
-depression
PLAN:
-Continue Low Residue diet
-Continue Ceftriaxone and Flagyl. Can convert to Cefdinir and Flagyl on DC for a total of 7 days.
-Will discuss timing of starting Amjevita (Humira biosimilar) with Dr. Marcano. Patient aware.
-Follow up with Dr. Casillas on 03/09/25 at 3 pm. Patient aware.
-Can likely DC today as long as continues to feel well. Discussed with Medicine Attending.
Subjective
Subjective
Date of Service: February 13, 2025
Patient feeling improved. Solid BM with slight 'tinge' of blood. I was able to visualize this and it was negligible. Patient tolerating low residue diet without any difficulty. She is without any pain. Patient afebrile, normal WBC, continues on
Ceftriaxone and Flagyl. ESR 11, CRP < 5.0. Stool studies resulted: Positive WBC, Negative for all of these: CDiff, yersina, E coli, Crypto/giardia.
Stool studies pending:O&P, Shigella, Salmonella, campylobacter, calpro.
Objective
Data Reviewed
Laboratory Data:
Laboratory Results
02/12/25 04:09
02/12/25 04:09
Laboratory Results
PT 12.8 Sec (11.4-14.6) 02/11/25 10:41
INR 0.92 02/11/25 10:41
APTT 23.6 Sec (23.4-35.0) 02/11/25 10:41
Magnesium 1.8 mg/dl (1.6-2.3) 02/12/25 04:09
Total Bilirubin 0.9 mg/dl (0.2-1.3) 02/11/25 10:41
AST 35 U/L (14-36) 02/11/25 10:41
ALT 30 U/L (0-35) 02/11/25 10:41
Alkaline Phosphatase 81 U/L (38-126) 02/11/25 10:41
Vital Signs and I&O:
Vital Signs
Temp Pulse Resp BP Pulse Ox
98.2 F 61 22 142/89 98
02/13/25 07:00 02/13/25 07:00 02/13/25 07:00 02/13/25 07:00 02/13/25 07:00
I&O
02/12/25 02/13/25 02/14/25
06:59 06:59 06:59
Intake Total 240 / 240 560 / 560
Balance 240 / 240 560 / 560
Physical Exam
Physical Exam
HEENT: Anicteric
Cardiology: Normal Sinus Rhythm
Pulmonary: Clear
GI: Soft, Non Distended, Non Tender and Normal Bowel Sounds
Extremities: No Edema
Neuro: Non Focal
--- NOTE | 2025-02-13 12:17 | CM ---
Addendum entered by Ayleen Arcos 02/13/25 13:54:
Pt discharged. No D/C needs. IV abx changed to PO
Original Note:
Chart reviewed. Met with pt at bedside.Pt requested to speak to Director Of Instruction; nurse made aware. No new discharge needs identified.
Plan: D/C to home No needs
--- NOTE | 2025-02-13 13:38 | W.PN.HOSP.TC ---
Addendum entered and electronically signed by Kimberly Anaya MD 02/13/25 15:56:
immuniosupressed pt
Original Note:
Today's Communication/Plan
-
DIscharge
Assessment / Plan
Assessment / Plan
Colonoscopy 10/23/2023-ileum normal, no inflammation, Diverticulosis in the sigmoid colon.
Better no abdominal pain
Stools have become more formed
Anxious to get home
Abdomen soft on exam
Cardiovascular system S1-S2 appreciated
Chest clear to auscultation
# Hematochezia
Recent trip to [facility]
Colitis infectious versus exacerbation of Crohn's likely infectious colitis
Stool studies, cultures and C. difficile, ova and parasites and uricemia
Continue AB Change ceftriaxone and Flagyl to Ceftin and Flagyl for total 7 days
CRP low
C. difficile negative-cultures pending
GI consultation appreciated
H&H stable
Diet advanced
# Crohn's disease on Amgevita as outpatient now scheduled to start on 02/11/2025. Patient was on Humira in the past
# Anxiety-continue Celexa
# Hyperlipidemia continue atorvastatin
# Diverticulosis
# DVT prophylaxis-SCDs
# Full code
D/W RN
D/W GI- OK for discharge
More than 30 minutes spent in discharge including
Final examination of the patient
Summarizing hospital stay
Instructions for continuing care to all relevant caregivers
Preparation of discharge records, prescriptions, and referral forms
Total time spent (in minutes): 32 min
Anticipated Discharge: Today
Subjective/Interval History
-
Date of Service: February 13, 2025
Objective Data
-
Vital Signs:
Vital Signs
Temp Pulse Resp BP Pulse Ox
98.2 F 61 22 142/89 98
02/13/25 07:00 02/13/25 07:00 02/13/25 07:00 02/13/25 07:00 02/13/25 07:00
I&O
02/12/25 02/13/25 02/14/25
06:59 06:59 06:59
Intake Total 240 / 240 560 / 560
Balance 240 / 240 560 / 560
--- NOTE | 2025-02-13 13:42 | W.DS.TRANS ---
Addendum entered and electronically signed by Kimberly Anaya MD 02/13/25 15:51:
Dictation- [id number]
Original Note:
DC Summary - [employer]
-
Discharge Instructions:
Discharge Diagnosis/Procedures Colitis
Chron's disease
ANxiety
Hyperlipidemia
Diverticulosis
Diet Low Residue
Activity As tolerated
Driving Restrictions As prior to admission
Instructions:
Stand-Alone Forms:
Changes to Home Medications: Yes
Discharge Medications:
DC Medications w/original date entered in [facility]
adalimumab-atto 40 mg/0.4 mL subcutaneous syringe (Amjevita(CF)) 40 mg SC Q2W Autoimmune Disorder 02/11/25
atorvastatin 10 mg tablet (Lipitor) 10 mg PO QPM High Cholesterol 02/11/25
citalopram 40 mg tablet (Celexa) 40 mg PO HS Depression 02/11/25
lansoprazole 30 mg capsule,delayed release 30 mg PO BID Gastrointestinal Issue 02/11/25
therapeutic multivitamin 1 tab PO DAILY Supplement 02/11/25
cefdinir 300 mg capsule 300 mg PO BID Infection #10 caps 02/13/25
metronidazole 500 mg tablet 500 mg PO TID in #15 tabs 02/13/25
Home Medication Changes
new
cefdinir 300 mg capsule 300 mg PO BID Infection #10 caps 02/13/25
metronidazole 500 mg tablet 500 mg PO TID in #15 tabs 02/13/25
Pending Results: Yes (stool culture)
[2025-02-13 15:00] VITALS: BP 151/90
[2025-02-17 01:13] LABS: Calprotectin, Fecal 1490 ug/g (<=49)
== END 2025-02-13 16:26 | disposition home or self-care (01) | DRG 392 ==
LOC: 4 WEST ACU 16:32
PROVIDERS: Physician Assistant; ADMITTING PHYSICIAN Hospitalist; CONSULT PHYSICIAN Student in an Organized Health Care Education/Training Program; EMERGENCY PHYSICIAN Emergency Medicine; FAMILY PHYSICIAN Family Medicine
DX: A09 Infectious gastroenteritis and colitis, unspecified (principal); K50.10 Crohn's disease of large intestine without complications; D84.9 Immunodeficiency, unspecified; K22.70 Barrett's esophagus without dysplasia; F41.9 Anxiety disorder, unspecified; E78.00 Pure hypercholesterolemia, unspecified; K76.0 Fatty (change of) liver, not elsewhere classified; K21.9 Gastro-esophageal reflux disease without esophagitis; F32.A Depression, unspecified; Z87.891 Personal history of nicotine dependence; Z79.620 Long term (current) use of immunosuppressive biologic
CPT/HCPCS: 74177; 80048; 80053; 82607; 83605; 83735; 83993; 85014; 85018; 85025; 85027; 85610; 85652; 85730; 86140; 86850; 86900; 86901; 87045; 87046; 87177; 87209; 87324; 87328; 87329; 87427; 87449; 89055; 96360; 99285; Q9967